=== PATIENT | female | born 1985 | race Caucasian/White ===

== ENCOUNTER 2022-08-03 14:57 | Outpatient (CLI) | payer OTHER, SELFPAY ==
[2022-08-03 17:31] LABS: Cholesterol* 207 mg/dL (90-199)
[2022-08-03 17:32] LABS: Glucose* 90 mg/dL (60-115); HDL Cholesterol* 69 mg/dL (>=50); LDL Cholesterol Calculated 127 mg/dL (<100); Triglycerides* 57 mg/dL (40-149)
== END 2022-08-03 14:58 | disposition home or self-care (01) ==
PROVIDERS: Visit Provider Obstetrics & Gynecology
DX: Z01.419 Encounter for gynecological examination (general) (routine) without abnormal findings (principal); Z13.1 Encounter for screening for diabetes mellitus; Z13.6 Encounter for screening for cardiovascular disorders
CPT/HCPCS: 80061; 82947

== ENCOUNTER 2025-10-19 09:24 | Outpatient (CLI) | payer BC, SELFPAY | END 2025-10-19 09:25 | disposition home or self-care (01) | PROVIDERS: Visit Provider Obstetrics & Gynecology | DX: I10 Essential (primary) hypertension (principal); Z13.6 Encounter for screening for cardiovascular disorders; E66.811 Obesity, class 1; Z68.34 Body mass index [BMI] 34.0-34.9, adult | CPT/HCPCS: 80048; 80061; 84443 ==